=== PATIENT | male | born 1985 | race Caucasian/White ===

== ENCOUNTER 2018-06-08 12:20 | Emergency (ER) | payer SELFPAY ==
[2018-06-08] MEDS: KETOROLAC 60 MG INJ IM (13:26)
== END 2018-06-08 15:23 | disposition home or self-care (01) ==
LOC: FTE 12:20
DX: S39.92XA Unspecified injury of lower back, initial encounter (principal); R06.02 Shortness of breath; V53.5XXA Driver of pick-up truck or van injured in collision with car, pick-up truck or van in traffic accident, initial encounter
CPT/HCPCS: 71045; 72100; 96372; 99284-25